=== PATIENT | male | born 1985 | race Caucasian/White ===

== ENCOUNTER 2021-04-29 20:57 | Emergency (ER) | payer SELFPAY ==
[~2021-04-29] VITALS: Ht 177.8 cm; Wt 77.3 kg
[2021-04-30 00:16] VITALS: BP 121/91
== END 2021-04-30 00:50 | disposition home or self-care (01) ==
LOC: EMS 21:00
DX: F41.9 Anxiety disorder, unspecified (principal); L98.9 Disorder of the skin and subcutaneous tissue, unspecified
CPT/HCPCS: 99281; Z7502